=== PATIENT | male | born 1955 | race Hispanic/Latino ===

== ENCOUNTER 2017-08-18 16:34 | Inpatient (IN) | payer OTHER ==
[~2017-08-18] VITALS: Ht 182.9 cm; Wt 92.9 kg
[2017-08-18 17:33] LABS: BASOPHILS % (AUTO) 0.5 % (0.0-5.0); EOSINOPHILS % (AUTO) 1.8 % (0.0-8.0); HEMATOCRIT 28.2 % (42-54); LYMPHOCYTES % (AUTO) 7.5 % (21.0-51.0); MEAN CORPUSCULAR HEMOGLOBIN 29.5 pg (27.0-33.0); MEAN CORPUSCULAR HGB CONC 33.5 g/dL (32.0-36.0); MEAN CORPUSCULAR VOLUME 88.1 fL (79-99); MONOCYTES % (AUTO) 6.5 % (3.0-13.0); NEUTROPHILS % (AUTO) 83.7 % (40.0-77.0); PLATELET COUNT (AUTO) 299 K/uL (130-400); RED CELL DISTRIBUTION WIDTH 13.6 % (11.0-15.5); WHITE BLOOD COUNT (AUTO) 13.7 K/uL (4.8-10.8)
[2017-08-18] MEDS ORDERED: MAG HYDROX/AL HYDROX/SIMETH ES 30 ML SUSP UDCUP ONE (17:39)
[2017-08-18] MEDS ORDERED: LIDOCAINE HCL 2% VISCOUS 15 ML UDCUP ONE (17:39)
[2017-08-18] MEDS ORDERED: ONDANSETRON HCL 4 MG/2 ML VIAL ONE (17:40)
[2017-08-18 17:43] LABS: CREATININE 4.7 mg/dL (0.5-1.5); POTASSIUM 5.9 mmol/L (3.5-5.1)
[2017-08-18 17:47] LABS: ALBUMIN 3.7 g/dL (3.5-5.0); BILIRUBIN,TOTAL 0.4 mg/dL (0.2-1.0)
[2017-08-18] MEDS ORDERED: SODIUM POLYSTYRENE SULFONATE 15 GM/60 ML ML ONE (21:43)
[2017-08-18] MEDS ORDERED: GLUCAGON 1MG KIT 1 MG ML IM PRN (22:45)
[2017-08-18] MEDS ORDERED: DEXTROSE 50%-WATER 50 ML DISP.SYRIN IV PRN (22:45)
[2017-08-18] MEDS ORDERED: ONDANSETRON HCL MDV 20ML 2 MG/ML VIAL IVP PRN (22:45)
[2017-08-18] MEDS ORDERED: HYDRALAZINE HCL 20 MG/ML VIAL IV PRN (22:45)
[2017-08-18] MEDS ORDERED: ACETAMINOPHEN 325 MG TAB PO PRN (23:00)
[2017-08-19] VITALS (7 sets, daily range): BP systolic 132–148; BP diastolic 71–82
[2017-08-19] MEDS: SODIUM CHLORIDE 0.9% 1000ML 1,000 ML IV SCH ×3 (00:42→18:26)
[2017-08-19] MEDS ORDERED: TELM1TAB26 PO (01:25)
[2017-08-19] MEDS ORDERED: METF850T2 PO (01:25)
[2017-08-19] MEDS ORDERED: EZET1TAB66 PO (01:25)
[2017-08-19] MEDS ORDERED: FEBU80TA PO (01:25)
[2017-08-19] MEDS ORDERED: GLIM2TAB3 PO (01:25)
[2017-08-19 05:17] LABS: BASOPHILS % (AUTO) 0.6 % (0.0-5.0); EOSINOPHILS % (AUTO) 3.2 % (0.0-8.0); LYMPHOCYTES % (AUTO) 24.4 % (21.0-51.0); MEAN CORPUSCULAR HEMOGLOBIN 30.3 pg (27.0-33.0); MEAN CORPUSCULAR HGB CONC 34.5 g/dL (32.0-36.0); MEAN CORPUSCULAR VOLUME 87.8 fL (79-99); MONOCYTES % (AUTO) 8.7 % (3.0-13.0); NEUTROPHILS % (AUTO) 63.1 % (40.0-77.0); PLATELET COUNT (AUTO) 287 K/uL (130-400); RED BLOOD CELL COUNT(AUTO) 3.07 MIL/uL (4.50-6.20); RED CELL DISTRIBUTION WIDTH 13.5 % (11.0-15.5)
[2017-08-19 05:30] LABS: ALBUMIN 3.2 g/dL (3.5-5.0); BILIRUBIN,TOTAL 0.4 mg/dL (0.2-1.0); CREATININE 3.8 mg/dL (0.5-1.5); POTASSIUM 4.5 mmol/L (3.5-5.1); TOTAL PROTEIN, SERUM 7.2 g/dL (6.0-8.3)
[2017-08-19 05:37] LABS: HEMOGLOBIN A1C 8.8 % (4.0-6.0)
[2017-08-19] MEDS: INSULIN HUMULIN R 100 UNIT/ML 3ML SQ SCH ×4 (06:05→20:28)
[2017-08-19] MEDS: FAMOTIDINE 20MG TAB 20 MG TAB PO SCH ×2 (08:46→20:23)
[2017-08-19] MEDS: HEPARIN SODIUM 5000UNIT/ML 1ML VIAL SQ SCH ×2 (12:10→22:47)
[2017-08-19 14:41] LABS: APPEARANCE,URINE Clear (CLEAR); BILIRUBIN,URINE Negative (NEGATIVE); COLOR,URINE Yellow (YELLOW); GLUCOSE, URINE (UA) 250 mg/dL (NEGATIVE); KETONES,URINE Negative (NEGATIVE); LEUKOCYTE ESTERASE ,URINE Negative (NEGATIVE); NITRATE,URINE Negative (NEGATIVE); OCCULT BLOOD,URINE Trace (NEGATIVE); PROTEIN,URINE POS 2+ (NEGATIVE); UROBILINOGEN,URINE 0.2 mg/dL (0.2-1.0)
[2017-08-19 14:44] LABS: CREATININE,URINE RANDOM 62 mg/dL (30-135); PROTEIN,URINE RANDOM 67.8 mg/dL (0-11.9)
[2017-08-19 15:09] LABS: BACTERIA,URINE None Seen /HPF (None Seen); RBC,URINE 0-1 /HPF (0-1); SQUAMOUS EPITHELIAL CELL,UR 0-2 /HPF (0-2); WBC,URINE None Seen /HPF (0-1)
[2017-08-19] MEDS: AMLODIPINE BESYLATE 5 MG TAB PO SCH (16:51)
[2017-08-19] MEDS: GLIMEPIRIDE 2 MG TABLET PO SCH (20:24)
[2017-08-19] MEDS ORDERED: EZETIMIBE PO SCH (21:00)
[2017-08-19] MEDS ORDERED: SIMVASTATIN PO SCH (21:00)
[2017-08-20 03:00] VITALS: BP 149/78
[2017-08-20] MEDS: SODIUM CHLORIDE 0.9% 1000ML 1,000 ML IV SCH ×2 (05:05→14:54)
[2017-08-20 05:18] LABS: HEMATOCRIT 25.9 % (42-54); MEAN CORPUSCULAR HGB CONC 34.2 g/dL (32.0-36.0); MEAN CORPUSCULAR VOLUME 87.7 fL (79-99); PLATELET COUNT (AUTO) 284 K/uL (130-400); RED BLOOD CELL COUNT(AUTO) 2.95 MIL/uL (4.50-6.20); RED CELL DISTRIBUTION WIDTH 13.2 % (11.0-15.5); WHITE BLOOD COUNT (AUTO) 8.7 K/uL (4.8-10.8)
[2017-08-20 05:37] LABS: BAND NEUTROPHILS % (MANUAL) 9 % (0-2); EOSINOPHILS % (MANUAL) 1 % (1-6); LYMPHOCYTES % (MANUAL) 17 % (22-44); MAN.DIFF COMMENT-IMPRESSION MANUAL DIFFERENTIAL; MONOCYTES % (MANUAL) 4 % (2-9); PLATELET MORPHOLOGY COMMENT ADEQUATE; SEGMENTED NEUTROPHILS % 69 % (40-70)
[2017-08-20 05:52] LABS: CREATININE 2.5 mg/dL (0.5-1.5); PHOSPHORUS 4.3 mg/dL (2.5-4.9); POTASSIUM 4.3 mmol/L (3.5-5.1)
[2017-08-20 06:03] LABS: % IRON SATURATION 18.8 % (30-44)
[2017-08-20] MEDS: INSULIN HUMULIN R 100 UNIT/ML 3ML SQ SCH ×3 (08:05→16:30)
[2017-08-20] MEDS: FAMOTIDINE 20MG TAB 20 MG TAB PO SCH (08:34)
[2017-08-20] MEDS: AMLODIPINE BESYLATE 5 MG TAB PO SCH (08:34)
[2017-08-20] MEDS: GLIMEPIRIDE 2 MG TABLET PO SCH (08:35)
[2017-08-20 08:58] VITALS: BP 163/88
[2017-08-20] MEDS ORDERED: FEBUXOSTAT 80 MG PO SCH (09:00)
[2017-08-20] MEDS: HEPARIN SODIUM 5000UNIT/ML 1ML VIAL SQ SCH (10:22)
[2017-08-20 12:24] VITALS: BP 187/80
[2017-08-20 13:20] VITALS: BP 166/74
[2017-08-20] MEDS ORDERED: COMPOUND IV MISC 1 EACH IVSOLN MISC PRN (14:15)
[2017-08-20] MEDS ORDERED: FAMO20TA8 PO (15:27)
[2017-08-20] MEDS ORDERED: FERS325 PO (15:27)
[2017-08-20] MEDS ORDERED: HYDR25 PO (15:27)
[2017-08-20] MEDS ORDERED: AMLO5TAB4 PO (15:27)
[2017-08-20] MEDS ORDERED: HYDRALAZINE HCL 25 MG TABLET PO SCH (15:30)
[2017-08-21] MEDS ORDERED: IRON SUCROSE COMPLEX 100 MG in SODIUM CHLORIDE 0.9% 50 ML IV SCH (09:00)
== END 2017-08-20 17:15 | disposition home or self-care (01) | DRG 684 ==
LOC: EDH 16:34 → EDHIP 16:35 → 3AH 23:15
PROVIDERS: ADMIT Internal Medicine Nephrology; ATTEND Internal Medicine Nephrology
DX: N17.9 Acute kidney failure, unspecified (principal); D63.1 Anemia in chronic kidney disease; D72.829 Elevated white blood cell count, unspecified; E11.22 Type 2 diabetes mellitus with diabetic chronic kidney disease; E78.00 Pure hypercholesterolemia, unspecified; E78.5 Hyperlipidemia, unspecified; E87.5 Hyperkalemia; E87.6 Hypokalemia; I12.9 Hypertensive chronic kidney disease with stage 1 through stage 4 chronic kidney disease, or unspecified chronic kidney disease; N18.9 Chronic kidney disease, unspecified; Z82.49 Family history of ischemic heart disease and other diseases of the circulatory system; Z83.3 Family history of diabetes mellitus; Z87.891 Personal history of nicotine dependence; Z89.439 Acquired absence of unspecified foot
CPT/HCPCS: 36415; 76770; 80048; 80053; 80061; 81001; 82570; 82948; 83036; 83540; 83550; 83690; 84100; 84156; 85025; 86334; 93005; J0360; J1644; J1756; J1815; J2405; J7030

== ENCOUNTER → 2018-11-07 | Outpatient (CLI) | payer OTHER ==
[~2018-11-07] MED LIST: FERR325T22 PO; GLIP5TAB11 PO; LOVA10TA2 PO; MUPI22O TP; verapamil PO
[2018-11-07] MEDS: REGADENOSON 0.4 MG/5 ML PF SYG IVP SCH (12:58)
== END | disposition home or self-care (01) ==
LOC: RAH 08:44
PROVIDERS: ATTEND Family Medicine
DX: I11.9 Hypertensive heart disease without heart failure (principal); I25.119 Atherosclerotic heart disease of native coronary artery with unspecified angina pectoris; I34.0 Nonrheumatic mitral (valve) insufficiency
CPT/HCPCS: 78452; 93017; 93306; 96374; A9500 ×2; J2785

== ENCOUNTER → 2019-05-07 | Outpatient (CLI) | payer OTHER | END | disposition home or self-care (01) | LOC: OIH 13:56 | PROVIDERS: ATTEND Podiatrist | DX: S92.412A Displaced fracture of proximal phalanx of left great toe, initial encounter for closed fracture (principal); S90.32XA Contusion of left foot, initial encounter; E11.621 Type 2 diabetes mellitus with foot ulcer; E11.40 Type 2 diabetes mellitus with diabetic neuropathy, unspecified; Z89.431 Acquired absence of right foot; X58.XXXA Exposure to other specified factors, initial encounter; Y93.89 Activity, other specified; Y92.89 Other specified places as the place of occurrence of the external cause; Y99.8 Other external cause status | CPT/HCPCS: 73630 ==

== ENCOUNTER → 2019-07-18 | Outpatient (CLI) | payer OTHER | END | disposition home or self-care (01) | LOC: OIH 12:37 | PROVIDERS: ATTEND Family Medicine | DX: M50.30 Other cervical disc degeneration, unspecified cervical region (principal); R20.2 Paresthesia of skin | CPT/HCPCS: 72040 ==

== ENCOUNTER → 2022-12-13 | Outpatient (CLI) | payer OTHER ==
[~2022-12-13] MED LIST changes: -GLIP5TAB11 PO; +GLIP5TAB15 PO
== END | disposition home or self-care (01) ==
LOC: RAH 13:00
PROVIDERS: ATTEND Internal Medicine Cardiovascular Disease
DX: Z13.6 Encounter for screening for cardiovascular disorders (principal); R93.1 Abnormal findings on diagnostic imaging of heart and coronary circulation
CPT/HCPCS: 75571

== ENCOUNTER → 2025-02-13 | Outpatient (CLI) | payer OTHER ==
--- NOTE | 2025-02-14 15:50 | HMCIMG ---
NAME OF THE EXAM: MRI BRAIN AND BRAINSTEM WITHOUT CONTRAST CLINICAL INFORMATION: Other amnesia. TECHNIQUE: Multiplanar, multisequence MRI of the brain and brainstem was performed without intravenous contrast, including T1, T2, FLAIR, and diffusion-weighted imaging. Lack of intravenous contrast limits evaluation of enhancing masses, vascular malformations, and inflammatory processes. CONTRAST: No intravenous contrast administered. COMPARISON: None provided. FINDINGS: BRAIN PARENCHYMA: Nonspecific foci of high T2/FLAIR signal are present in the periventricular and deep subcortical white matter, most compatible with chronic microangiopathic change in the appropriate clinical context. No intra-axial mass, diffusion restriction, or intra-parenchymal hemorrhage is identified. No mass effect or herniation. EXTRA-AXIAL SPACES: Extra-axial CSF spaces are normal in size and configuration for age. No extra-axial fluid collection, such as subdural or epidural hematoma, is identified. VENTRICULAR SYSTEM: Ventricles are normal in size and morphology without hydrocephalus or midline shift. BASAL CISTERNS: Basal cisterns are patent and appear normal without effacement. POSTERIOR FOSSA: Brainstem and cerebellum demonstrate normal signal and morphology. No cerebellopontine angle mass is seen. PITUITARY AND SELLAR REGION: Pituitary gland and sellar/suprasellar region are unremarkable on the sequences obtained. No sellar or suprasellar mass is identified. VASCULATURE: Intracranial arterial and dural venous sinus flow voids are preserved, with no evidence of large-vessel occlusion or venous sinus thrombosis on this noncontrast examination. ORBITS: No intraorbital mass or acute abnormality is identified. Globes and extraocular structures appear unremarkable. PARANASAL SINUSES: Mild chronic mucosal thickening is present in the left maxillary sinus and bilateral ethmoid air cells, consistent with mild chronic sinusitis. No air-fluid levels are seen. Mastoid air cells are clear. SKULL BASE / EXTRACRANIAL SOFT TISSUES: There is a well-circumscribed soft tissue mass in the left basiocciput measuring approximately 2.7 x 6.8 x 4.7 cm (AP x transverse x craniocaudal). It demonstrates internal septations and is hyperintense on T1- and T2-weighted sequences and hypointense on FLAIR, with no internal flow voids describedan imaging pattern most suggestive of a fat-containing lesion (such as lipoma or intraosseous lipoma) in this location. No associated aggressive bone destruction, extra-axial mass effect, or intracranial extension is reported on this noncontrast study. IMPRESSION: * Well-circumscribed, septated soft tissue mass in the left basiocciput measuring 2.7 x 6.8 x 4.7 cm, demonstrating T1/T2 hyperintensity and FLAIR hypointensity, most compatible with a fat-containing lesion such as lipoma or intraosseous lipoma in the absence of aggressive features. Recommend correlation with any local pain or mass effect symptoms, and further characterization with contrast-enhanced MRI and/or CT of the skull base if there is clinical concern or if surgical planning is contemplated. 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 * Mild chronic left maxillary and bilateral ethmoid sinusitis without acute sinus fluid levels. * No intracranial hemorrhage, acute infarct, mass effect, hydrocephalus, or cerebellar/brainstem abnormality identified on this noncontrast MRI of the brain and brainstem. /[place]
== END | disposition home or self-care (01) ==
LOC: RAH 15:22
PROVIDERS: ATTEND Psychiatry & Neurology Neurology
DX: J32.2 Chronic ethmoidal sinusitis (principal); I67.82 Cerebral ischemia; R41.3 Other amnesia
CPT/HCPCS: 70551